=== PATIENT | female | born 1980 | race Caucasian/White ===

== ENCOUNTER 2024-06-22 15:12 | Inpatient (IN) | payer SELFPAY ==
[2024-06-22] VITALS (40 sets, daily range): BP systolic 110–140; BP diastolic 61–83; PULSE 68–119; RESP 16; TEMP 36.4–37.1; O2SAT 77–100; BMI 33.6
[2024-06-22] MEDS: Lactated Ringers 1,000 ML 50 ML IV (16:00)
[2024-06-22 16:22] LABS: Absolute Lymphocyte Count 1.42 X10^3/uL (0.83-4.51); Absolute Neutrophil Count 3.8 X10^3/uL (2.0-7.7); Basophil# 0.03 X10^3/uL; Basophil% 0.5 % (0-1); Eosinophil# 0.03 X10^3/uL; Eosinophils% 0.5 % (0-5); Hematocrit 38.1 % (37-47); Hemoglobin 12.8 g/dL (12.0-15.0); Lymphocyte # 1.42 X10^3/ul (0.83-4.51); Lymphocyte % 24.1 % (19-41); Mean Corp Hgb Conc 33.6 g/dL (32-36); Mean Corpuscular Hgb 30.5 pg (27.0-32.0); Mean Corpuscular Volume 90.9 fL (81-99); Mean Platelet Vol. 9.4 fl (6.2-12.0); Monocyte# 0.61 X10^3/uL; Monocyte% 10.3 % (0-10); NRBC Flagged by Analyzer 0 % (0-5); Neutrophil # 3.79 X10^3/uL (2.7-7.7); Neutrophil % 64.3 % (47-70); Platelet Count 268 K/mm3 (150-450); RBC Distribution Width CV 13.3 % (11.6-14.6); Red Blood Count 4.19 M/mm3 (4.2-5.4); White Blood Count 5.9 K/mm3 (4.4-11.0)
[2024-06-22] MEDS: Oxytocin 15 Units/NS 250ml 15 UNITS/250 ML IV.SOLN 2 UNITS IV (16:52)
[2024-06-22 17:12] LABS: Syphilis Antibodies Non-reactive
[2024-06-22 18:29] LABS: Bedside Glucose 82 mg/dL (74-106)
--- NOTE | 2024-06-22 19:14 | PCM.HP.OB ---
HPI - General General Date of Admission: 06/22/24 Date of Service: 06/22/24 Chief Complaint: induction of labor HPI Narrative OSBALDO BROTHERS, is a 44 F 10 para 8-0-1-8 who presents at 40 1/7 weeks gestation for induction of labor due to uncontrolled gestational diabetes. Patient has not been checking her blood sugars regularly. Did not do 3-hour GTT. The few blood sugar she has reported to us were elevated fastings. She denies any vaginal bleeding or leaking of fluid. She has had good movement. Maternal Data Information Final BLESSING: 06/21/24 Gestational age: 40 1/7 PFSH PFS Medical History (Updated 06/22/24 @ 19:[address] Melody Sanders MD) Gestational diabetes Allergy/AdvReac Type Severity Reaction Status Date / Time No Known Allergies Allergy Verified 06/22/24 15:15 Surgical History (Updated 06/22/24 @ 15:21 by Chani Bradley) History of surgery Social History Smoking Status: Never smoker History Elective abortions Hx Para 8 Spontaneous abortions Hx # Term Pregnancies Ectopic pregnancies Hx # Pregnancies Multiple births # of living children ROS Constitutional Constitutional: Denies fatigue, fever(s) or malaise Eyes Eyes: Denies change in vision ENT HEENT: Denies dizziness or headache(s) Cardiovascular Cardiovascular: Denies chest pain, dyspnea or lightheadedness Respiratory/Chest Respiratory/Chest: Denies cough or dyspnea Gastrointestinal Gastrointestinal: Denies change in bowel habits Genitourinary Genitourinary: Denies burning urination or genital lesions Integumentary Integumentary: Denies rash Neurologic Neurologic: Denies confusion, dizziness, headache(s), numbness or weakness Vital Signs Vital Signs Vital Signs: 06/22/24 16:50 06/22/24 16:50 06/22/24 16:51 Temperature Temperature Source Pulse Rate 77 Respiratory Rate Blood Pressure 130/72 H BP Systolic 130 BP Diastolic 72 Pulse Ox 99 06/22/24 16:51 06/22/24 18:02 06/22/24 18:02 Temperature Temperature Source Temporal Pulse Rate 75 Respiratory Rate Blood Pressure 115/74 BP Systolic 115 BP Diastolic 74 Pulse Ox 06/22/24 18:02 06/22/24 18:02 06/22/24 18:02 Temperature 98.1 F Temperature Source Pulse Rate 80 Respiratory Rate 16 Blood Pressure BP Systolic BP Diastolic Pulse Ox Weight Weight: 83.461 kg Body Mass Index (BMI) 33.6 Physical Exam Const alert and no apparent distress General Appearance: cooperative HEENT normocephalic Resp normal respiratory effort Cardio regular rate GI soft to palpation GI Narrative: gravid, nontender, appropriate for gestational age Extremity no calf tenderness General Extremity: edema Skin no wounds Rashes: No rashes noted Psych activity/motor behavior normal Labs Labs Labs: Antibody Screen Pending Hct 38.1 % (37-47) Hgb 12.8 g/dL (12.0-15.0) Syphilis Total Ab Non-reactive Assessment & Plan (1) 40 weeks gestation of : PLAN: Estimated weight on 06/15/2024 was 3996 g which is 88th percentile. Risk benefits and alternatives to induction of labor were discussed with patient, her questions were answered to her satisfaction consent was signed and she desires to proceed. Pitocin and artificial rupture of membrane induction of labor. May have routine pain control measures as desired and as needed. Monitor blood sugars in labor. (2) High risk multigravida in third trimester: (3) Advanced maternal age (AMA), 40 years or greater: (4) Maternal obesity syndrome in third trimester: (5) Gestational diabetes, diet controlled:
[2024-06-22] MEDS: LACTATED RINGERS 500 ML 999 ML IV (20:46)
[2024-06-22 20:57] LABS: Bedside Glucose 86 mg/dL (74-106)
[2024-06-22] MEDS: Oxytocin 15 Units/NS 250ml 15 UNITS/250 ML IV.SOLN 334 UNITS IV (21:56)
--- NOTE | 2024-06-22 22:11 | EX.PCM.OBRPT ---
Assessment & Plan (1) 40 weeks gestation of : (2) High risk multigravida in third trimester: (3) (spontaneous vaginal delivery): (4) Single live : Maternal Data Information Final BLESSING: 06/21/24 Gestational age: 40 1/7 Vaginal Delivery Maternal Presentation Maternal Presentation: Medically Indicated Induction Type of Induction: Pitocin and Amniotomy Operative Information Date of Procedure: 06/22/24 Pre-Operative Diagnosis: labor Post-Operative Diagnosis: same Surgery / Procedure Performed: Spontaneous Vaginal Delivery Type of Anesthesia: None Special Medications: none Drain: - (none) Estimated Blood Loss: 200 Time of Delivery: 21:53 Findings Description of Procedure: A vigorous male was delivered ESTER over an intact perineum. Loose nuchal cord x 2 was easily reduced the remainder the infant was delivered with maternal pushing and gentle traction only in less than 15 seconds. The Pitocin infusion was initiated for active management of the third stage. The cord was clamped and cut after 1 minute. The infant was attended to by the waiting nursing staff. The placenta was delivered spontaneously and intact. The cervix and vagina were intact. Sponge and needle counts were correct. A vaginal sweep was completed by me. Presentation: ESTER Amniotic Membrane Rupture Type: Artificial Amniotic Fluid Description: Clear Placental Delivery Description: Spontaneous Placenta Disposition: [facility] Cord Vessel Description: 3 Vessels Cord Entanglement: Around neck x 2, loose Nuchal Cord Compression: Without compression Infant A Gender: Male (1 minute): 8 (5 minute): 9 Delayed Cord Clamping: Yes Post Vaginal Delivery Medications Given After Delivery: IV Pitocin Episiotomy Description: None Laceration: None Complication Complications: None Admit VTE Documentation VTE Present on Admission: No VTE Pharm Prophylaxis Ordered: No Reason Prophylaxis Not Ordered: Procedure Not Indicated
[2024-06-22] MEDS: Oxytocin 15 Units/NS 250ml 15 UNITS/250 ML IV.SOLN 83 UNITS IV (22:29)
[2024-06-23] VITALS (9 sets, daily range): BP systolic 114–124; BP diastolic 55–75; PULSE 8–176; RESP 16–18; TEMP 36.1–37.1; O2SAT 82–98
[2024-06-23 01:09] LABS: Bedside Glucose 119 mg/dL (74-106)
[2024-06-23 05:49] LABS: Bedside Glucose 82 mg/dL (74-106)
--- NOTE | 2024-06-23 18:02 | PCM.PN.OB ---
Subjective Subjective Doing well. Light lochia. Pain controlled. Breast feeding well. Ambulating and voiding without difficulty Objective Data Objective Data Vital Signs: Vital Signs Temp Pulse Resp BP Pulse Ox O2 Del Method 98 F 67 18 114/72 97 Room Air 06/23/24 16:10 06/23/24 16:10 06/23/24 16:10 06/23/24 16:10 06/23/24 16:10 06/23/24 16:10 Oxygen Delivery Method Room Air Weight: 83.461 kg Body Mass Index (BMI) 33.6 Intake & Output: Intake and Output for Last 24 Hours 06/21/24 06/22/24 06/23/24 23:59 23:59 23:59 Intake Total 995.01 / 995.01 250 / 250 Output Total 200 / 200 1750 / 1750 Balance 795.01 / 795.01 -1500 / -1500 Lab / Micro Data 06/22/24 16:00 Labs: Laboratory Results - last 24 hr 06/22/24 16:00: Blood Type A POSITIVE, Antibody Screen NEGATIVE 06/22/24 18:07: POC Glucose 82 06/22/24 20:31: POC Glucose 86 06/22/24 22:05: POC Glucose 119 H 06/23/24 05:28: POC Glucose 82 Physical Exam Const alert and no apparent distress Narrative: Fundus firm, below umbilicus. Assessment & Plan (1) (spontaneous vaginal delivery): (2) Gestational diabetes, diet controlled: QUALIFIERS: Trimester: third trimester Qualified Code(s): O24.410 - Gestational diabetes mellitus in , diet controlled
[2024-06-24 02:38] VITALS: BP 112/65; PULSE 60; RESP 16; TEMP 36.8
--- NOTE | 2024-06-24 07:04 | PCM.PN.OB ---
Subjective Subjective Doing well. Light lochia. Pain controlled. Breast feeding well. Ambulating and voiding without difficulty Objective Data Objective Data Vital Signs: Vital Signs Temp Pulse Resp BP Pulse Ox O2 Del Method 98.2 F 60 16 112/65 97 Room Air 06/24/24 02:38 06/24/24 02:38 06/24/24 02:38 06/24/24 02:38 06/23/24 16:10 06/24/24 02:38 Oxygen Delivery Method Room Air Weight: 83.461 kg Body Mass Index (BMI) 33.6 Intake & Output: Intake and Output for Last 24 Hours 06/22/24 06/23/24 06/24/24 23:59 23:59 23:59 Intake Total 995.01 / 995.01 250 / 250 Output Total 200 / 200 1750 / 1750 Balance 795.01 / 795.01 -1500 / -1500 Lab / Micro Data 06/22/24 16:00 ROS Constitutional Constitutional: Denies fatigue, fever(s) or malaise Eyes Eyes: Denies change in vision ENT HEENT: Denies dizziness or headache(s) Cardiovascular Cardiovascular: Denies chest pain, dyspnea or lightheadedness Respiratory/Chest Respiratory/Chest: Denies cough or dyspnea Gastrointestinal Gastrointestinal: Denies change in bowel habits Genitourinary Genitourinary: Denies burning urination or genital lesions Integumentary Integumentary: Denies rash Neurologic Neurologic: Denies confusion, dizziness, headache(s), numbness or weakness Physical Exam Const alert and no apparent distress Narrative: Fundus firm, below umbilicus. Assessment & Plan (1) (spontaneous vaginal delivery): (2) Gestational diabetes, diet controlled: QUALIFIERS: Trimester: third trimester Qualified Code(s): O24.410 - Gestational diabetes mellitus in , diet controlled PLAN: Plan Discharge home
--- NOTE | 2024-06-24 07:08 | PCM.DC.SUM ---
Providers Date of Admission: 06/22/24 Date of Discharge: 06/24/24 Primary Care Physician: Dr. Leon Campbell MD Reason For Visit: VAGINAL DELIVERY Diagnosis Discharge Diagnosis (1) (spontaneous vaginal delivery): Status: Acute Code(s): O80 - Encounter for full-term uncomplicated delivery (2) Gestational diabetes, diet controlled: Status: Acute Code(s): O24.410 - Gestational diabetes mellitus in , diet controlled Qualifiers: Trimester: third trimester Qualified Code(s): O24.410 - Gestational diabetes mellitus in , diet controlled Plan Discharge home Hospital Course Operations None Procedures None Summary of Care Provided Minutes Spent on Discharge: 21 Hospital Course: IOL for GDM. Normal spontaneous vaginal delivery. No complications . Breast feeding Physical Exam Const alert and no apparent distress General Appearance: cooperative HEENT normocephalic Resp normal respiratory effort Cardio regular rate GI soft to palpation GI Narrative: gravid, nontender, appropriate for gestational age Narrative: Fundus firm, below umbilicus. Extremity no calf tenderness General Extremity: edema Skin no wounds Rashes: No rashes noted Psych activity/motor behavior normal Weight / BMI Weight Weight: 83.461 kg Body Mass Index (BMI) 33.6 ABG / Lab / Microbiology Data 06/22/24 16:00 D/C Instructions May resume sexual activity in: 6 weeks Please Follow Up With: Melody Sanders MD When: Follow up with our office in 1-2 and 6 weeks or as needed. [phone] Meaningful Use Info Meaningful Use Meaningful Use Diagnoses (Choose all that apply): None applicable Ischemic Stroke Statin Dosing Therapy Reference: STATIN DOSE THERAPY REFERENCE: * Patients > 75 years receive moderate or high dose statin therapy. * Patients 75 years or YOUNGER should receive HIGH intensity statin dose unless contraindicated. You will be required to document reason for non-treatment if statin daily dose does not meet guidelines. HIGH DOSE STATIN THERAPY DAILY Atorvastatin > than or = to 40 mg Rosuvastatin > than or = to 20 mg Amlodipine + Atorvastatin > than or = to 2.5/40 mg Ezetimibe + Simvastatin 10/80 mg Simvastatin 80mg Discharge Plan Admission Admit Date/Time: 06/22/24 15:12 Primary Reason for Your Visit: Labor and delivery Attending Provider: Melody Sanders Primary Care Provider: Leon Campbell Discharge Orders/Prescriptions Referrals / Follow Up: Leon Campbell MD [Primary Care Provider] - Disposition Disposition (needs filled in before D/C Order can be placed): Home, Self Care
[2024-06-24 08:44] VITALS: BP 102/62; PULSE 70; RESP 17; TEMP 36.9; O2SAT 98
[2024-06-24 08:46] VITALS: BP 102/62; PULSE 68
== END 2024-06-24 09:42 | disposition home or self-care (01) | DRG 807 ==
LOC: WPOUT 15:21 → WP 15:22 → WPOUT 15:23 → WP 15:23
PROVIDERS: Admitting Provider Obstetrics & Gynecology; PCP Family Medicine; Referring Provider Obstetrics & Gynecology; Visit Provider Obstetrics & Gynecology
DX: O24.420 Gestational diabetes mellitus in childbirth, diet controlled (principal); Z37.0 Single live birth; O26.03 Excessive weight gain in pregnancy, third trimester; O69.81X0 Labor and delivery complicated by cord around neck, without compression, not applicable or unspecified; Z3A.40 40 weeks gestation of pregnancy
CPT/HCPCS: 59025; 59050; 82962; 85025; 86780; 86850; 86900; 86901; 99221; J7120; G0378